=== PATIENT | male | born 1995 ===

== ENCOUNTER 2023-10-01 10:49 | Emergency (ER) | payer BC ==
[~2023-10-01] VITALS: Ht 182.8 cm; Wt 97.5 kg
[2023-10-01] MEDS ORDERED: NAPROSYN500 MG PO (11:28)
[2023-10-01] MEDS ORDERED: methylPREDNISolone sod succ 125 MG VIAL IM ONE (11:30)
[2023-10-01] MEDS ORDERED: Ketorolac Tromethamine 30 MG/ML VIAL IM ONE (11:30)
== END 2023-10-01 11:38 | disposition home or self-care (01) ==
LOC: ED 10:49
DX: S46.311A Strain of muscle, fascia and tendon of triceps, right arm, initial encounter (principal); M79.621 Pain in right upper arm; X50.0XXA Overexertion from strenuous movement or load, initial encounter; Y93.89 Activity, other specified; Y92.89 Other specified places as the place of occurrence of the external cause; Y99.8 Other external cause status